=== PATIENT | male | born 1965 | race Caucasian/White ===

== ENCOUNTER 2017-12-28 17:37 | Emergency (ER) | payer MEDICAID ==
[~2017-12-28] VITALS: Ht 167.6 cm; Wt 65.9 kg
[2017-12-28 17:40] VITALS: BP 166/88
[2017-12-28] MEDS ORDERED: TETanus/Pertussis (Acell)/Diphther VAC/PF (Tdap-Adult) 0.5ml syringe IMVAC ONE (17:50)
[2017-12-28] MEDS ORDERED: ciprofloxacin lact 400MG/200ML 200 ML IV STA (18:00)
[2017-12-28] MEDS ORDERED: LIDOcaine 1% 30ml preserv. free vial IJ STA (18:44)
[2017-12-28] MEDS ORDERED: LIDOcaine 1% (10mg/ml)w/preservative injection 20ml MDV SQ ONE (18:50)
== END 2017-12-28 19:37 | disposition home or self-care (01) ==
LOC: ER 17:37
DX: S61.217A Laceration without foreign body of left little finger without damage to nail, initial encounter (principal); F12.90 Cannabis use, unspecified, uncomplicated; F15.90 Other stimulant use, unspecified, uncomplicated; Z88.0 Allergy status to penicillin; Z87.891 Personal history of nicotine dependence; Z96.22 Myringotomy tube(s) status; W20.8XXA Other cause of strike by thrown, projected or falling object, initial encounter; Y93.89 Activity, other specified; Y92.89 Other specified places as the place of occurrence of the external cause; Y99.8 Other external cause status
CPT/HCPCS: 73140; 90471; 90715; 96365; 99284; J0744; J2001

== ENCOUNTER 2018-03-30 11:46 | Emergency (ER) | payer MEDICAID ==
[~2018-03-30] VITALS: Ht 167.6 cm; Wt 63.6 kg
[2018-03-30 12:27] VITALS: BP 128/82
[2018-03-30] MEDS ORDERED: HYDROcodone/acetaminophen 10/325mg tab PO ONE (12:35)
[2018-03-30] MEDS ORDERED: HYDR-4383 PO (12:37)
[2018-03-30] MEDS ORDERED: ACYC-202 PO (12:37)
[2018-03-30] MEDS ORDERED: diazepam 5mg tablet PO ONE (12:40)
--- NOTE | 2018-03-30 13:28 | NUR ---
Called patient and irene answered. Irene is listed on patients contact information, but stated that I had the wrong number.
--- NOTE | 2018-03-30 13:40 | NUR ---
Patient seen and assessed by provider.
== END 2018-03-30 13:56 | disposition home or self-care (01) ==
LOC: ER 11:46
DX: A60.01 Herpesviral infection of penis (principal); F12.90 Cannabis use, unspecified, uncomplicated; F15.90 Other stimulant use, unspecified, uncomplicated
CPT/HCPCS: 36415; 86695; 86696; 99283

== ENCOUNTER 2018-04-14 16:07 | Emergency (ER) | payer MEDICAID ==
[~2018-04-14] VITALS: Ht 167.6 cm; Wt 69.4 kg
[~2018-04-14 16:07] MED LIST: ACYC-202 PO; HYDR-4383 PO
[2018-04-14 16:20] VITALS: BP 116/67
[2018-04-14 17:14] LABS: CLARITY,URINE SLIGHTLY CLOUDY (Clear); COLOR,URINE YELLOW (Yellow); GLUCOSE, URINE NEGATIVE (Neg); KETONES,URINE TRACE mg/dl (Neg); LEUKOCYTE ESTERASE ,URINE MODERATE (Neg); NITRITES, URINE NEGATIVE (Neg); OCCULT BLOOD,URINE SMALL (Neg); PH,URINE 5.5 (4.8-8.0); PROTEIN,URINE NEGATIVE (Neg); UROBILINOGEN,URINE 0.2 E.U/dL (0.2-1.0)
[2018-04-14] MEDS ORDERED: fluconazole 150mg tablet PO ONE (17:15)
[2018-04-14 17:18] LABS: UA COLLECTION TYPE VOIDED
[2018-04-14] MEDS ORDERED: CLOT15CR10 TP (17:19)
[2018-04-14 17:21] LABS: BACTERIA,URINE 1+ /HPF (Neg); CAL OXALATE CRYSTALS 2+ /HPF (NEGATIVE); MUCUS STRANDS FEW /LPF (Neg); RBC,URINE 0-2 /HPF (0-2); SQUAMOUS EPITHELIAL CELL,UR FEW /LPF (FEW)
[2018-04-14 17:22] LABS: CELLULAR CAST 0-4 /LPF (NEGATIVE)
[2018-04-14] MEDS ORDERED: IBUP-1984 PO (17:29)
[2018-04-14] MEDS ORDERED: ketorolac tromethamine 15mg/ml inj. IM ONE (17:30)
[2018-04-14] MEDS ORDERED: ibuprofen 200mg tablet PO ONE (18:00)
[2018-04-16 08:17] LABS: RPR Reactive (Non Reactive)
== END 2018-04-14 18:11 | disposition home or self-care (01) ==
LOC: ER 16:07
DX: N48.1 Balanitis (principal); F12.90 Cannabis use, unspecified, uncomplicated; F15.90 Other stimulant use, unspecified, uncomplicated; Z59.0 Homelessness; Z88.0 Allergy status to penicillin
CPT/HCPCS: 36415; 81001; 86592; 87077; 87088; 87186; 87491; 87591; 99283; J1885

== ENCOUNTER 2019-06-09 20:15 | Emergency (ER) | payer MEDICAID, OTHER ==
[~2019-06-09] VITALS: Ht 167.6 cm; Wt 66.0 kg
[~2019-06-09 20:15] MED LIST changes: -ACYC-202 PO; +CLOT15CR10 TP; +VALA100031 PO
[2019-06-09 20:25] VITALS: BP 133/82
[2019-06-09] MEDS ORDERED: azithromycin 250mg tablet PO ONE (21:05)
[2019-06-09] MEDS ORDERED: CefTRIAXone 250MG IM Kit w/LIDOcaine IM ONE (21:05)
[2019-06-09] MEDS ORDERED: penicillin G benzathine 1.2 million unit/2ml syringe IM ONE (21:05)
[2019-06-09] MEDS ORDERED: VALA500T41 PO (21:53)
[2019-06-11 08:09] LABS: RPR Reactive (Non Reactive)
== END 2019-06-09 22:18 | disposition home or self-care (01) ==
LOC: ER 20:16
DX: B00.9 Herpesviral infection, unspecified (principal); N48.5 Ulcer of penis; F12.90 Cannabis use, unspecified, uncomplicated; F15.90 Other stimulant use, unspecified, uncomplicated; Z86.19 Personal history of other infectious and parasitic diseases; Z98.890 Other specified postprocedural states; Z59.0 Homelessness; Z88.0 Allergy status to penicillin; Z79.899 Other long term (current) drug therapy
CPT/HCPCS: 36415; 86592; 87491; 87591; 96372; 99284; J0561; J0696

== ENCOUNTER 2024-05-12 11:15 | Inpatient (IN) | payer MEDICAID, OTHER ==
[~2024-05-12] VITALS: Ht 167.6 cm; Wt 64.0 kg
[~2024-05-12 11:15] MED LIST changes: +VALA500T41 PO
[2024-05-12 11:55] LABS: BASOPHILS % (AUTO) 0.2 % (0-1); EOSINOPHILS % (AUTO) 0 % (0-6); HEMATOCRIT 35.7 % (42.0-52.0); LYMPHOCYTES # (AUTO) 0.6 X10'3 (1.1-4.8); LYMPHOCYTES % (AUTO) 3.6 % (21-51); MEAN CORPUSCULAR HEMOGLOBIN 30.6 PG (27.0-31.0); MEAN CORPUSCULAR HGB CONC 33.6 g/dL (33.0-36.5); MEAN CORPUSCULAR VOLUME 91.2 FL (78-98); MEAN PLATELET VOLUME 6.8 FL (7.4-10.4); MONOCYTES # (AUTO) 0.9 X10'3 (0-0.9); MONOCYTES % (AUTO) 5.5 % (2-12); NEUTROPHILS # (AUTO) 14.8 X10'3 (1.8-7.7); NEUTROPHILS % (AUTO) 90.7 % (42-75); PLATELET COUNT 404 X10'3 (140-440); RED BLOOD COUNT 3.91 X10'6 (4.70-6.10); RED CELL DISTRIBUTION WIDTH 14.2 % (11.5-14.5); WHITE BLOOD COUNT 16.3 X10'3 (4.5-11.0)
[2024-05-12 12:22] LABS: ALANINE AMINOTRANSFERASE 63 U/L (12-78); ALBUMIN 2.4 G/DL (3.4-5.0); ALBUMIN/GLOBULIN RATIO 0.4 (1.1-1.5); ALKALINE PHOSPHATASE 88 IU/L (46-116); ANION GAP 7 (8-16); ASPARTATE AMINO TRANSFERASE 50 U/L (10-37); BILIRUBIN,TOTAL 0.8 MG/DL (0.1-1.0); BLOOD UREA NITROGEN 19 MG/DL (7-18); BUN/CREATININE RATIO 16.2 (10.0-20.0); CALCIUM 8.6 MG/DL (8.5-10.1); CHLORIDE 91 MMOL/L (99-107); CREATININE 1.17 MG/DL (0.60-1.10); GLUCOSE 110 MG/DL (70-104); SODIUM 127 MMOL/L (135-145); TOTAL CARBON DIOXIDE 29.4 MMOL/L (24-32); TOTAL PROTEIN 7.9 G/DL (6.4-8.2); eCRCL 64 ML/MIN; eGFR 64 ML/MIN
[2024-05-12 12:32] LABS: BILIRUBIN,URINE SMALL (Neg); CLARITY,URINE CLEAR (Clear); GLUCOSE, URINE NEGATIVE (Neg); KETONES,URINE NEGATIVE (Neg); LEUKOCYTE ESTERASE ,URINE NEGATIVE (Neg); NITRITES, URINE NEGATIVE (Neg); OCCULT BLOOD,URINE MODERATE (Neg); PROTEIN,URINE 100 mg/dl (Neg)
[2024-05-12 12:38] LABS: URINE AMPHETAMINE SCREEN POSITIVE (Neg); URINE BARBITUATE SCREEN NEGATIVE (Neg); URINE BENZODIAZEPINES SCREEN NEGATIVE (Neg); URINE CANNABINOID SCREEN POSITIVE (Neg); URINE COCAINE SCREEN NEGATIVE (Neg); URINE METHADONE SCREEN NEGATIVE (Neg); URINE OPIATE SCREEN NEGATIVE (Neg); URINE PHENCYCLIDINE SCREEN NEGATIVE (Neg)
[2024-05-12 12:42] LABS: UA COLLECTION TYPE CLN CATCH MIDSTREAM
[2024-05-12 12:45] LABS: BACTERIA,URINE FEW /HPF (Neg); COLOR,URINE DARK YELLOW (Yellow); RBC,URINE 0-2 /HPF (0-2); SQUAMOUS EPITHELIAL CELL,UR FEW /LPF (FEW); WBC,URINE 0-4 /HPF (0-4)
[2024-05-12 12:46] LABS: COARSE GRANULAR CAST 0-3 /LPF (NEGATIVE)
[2024-05-12 12:52] LABS: PRO BRAIN NATRIURETIC PEPTIDE 286 PG/ML (0-125); THYROID STIMULATING HORMONE 1.66 ulU/ml (0.34-4.50)
[2024-05-12] MEDS: normal saline 1000ml 1,000 ML IV ONE (13:03)
[2024-05-12] MEDS: levoFLOXACIN-Levaquin 750MG/D5 150 ML IV STA (15:02)
[2024-05-12] MEDS ORDERED: acetaminophen 325mg tablet PO PRN (15:20)
[2024-05-12] MEDS ORDERED: mag hydrox/Alum hydrox/simeth 30ml oral suspension PO PRN (15:20)
[2024-05-12] MEDS ORDERED: HYDROcodone/acetaminophen 10/325mg tab PO PRN (15:20)
[2024-05-12] MEDS ORDERED: magnesium Cl slow-release 64mg tablet PO PRN (15:20)
[2024-05-12] MEDS ORDERED: morphine 2 MG/ML inj. syringe IV PRN ×2 (15:20)
[2024-05-12] MEDS ORDERED: ondansetron/PF 4mg/2ml inj IV PRN (15:20)
[2024-05-12] MEDS ORDERED: magnesium hydroxide 30ml (MOM) UD suspension PO PRN (15:20)
[2024-05-12] MEDS ORDERED: potassium Cl 40MEQ/1/2NS 520ml 520 ML IV PRN (15:20)
[2024-05-12] MEDS ORDERED: magnesium sulf-water 4G/100mL 100 ML IV PRN (15:20)
[2024-05-12] MEDS ORDERED: potassium Cl 20 mEq SR tablet PO PRN ×2 (15:20)
[2024-05-12] MEDS ORDERED: magnesium sulf-water 2g/50mL 50 ML IV PRN (15:20)
[2024-05-12] MEDS ORDERED: HYDROcodone/acetaminophen 5mg/325mg tablet PO PRN (15:20)
[2024-05-12] MEDS: normal saline 1000ml 1,000 ML IV SCH (15:37)
[2024-05-12 16:11] LABS: PHOSPHORUS 2.6 MG/DL (2.3-4.5)
[2024-05-12] MEDS ORDERED: UNABLE TO OBTAIN (16:47)
[2024-05-12] MEDS: ringers solution, lacted 1,000 ML IV ONE (17:45)
[2024-05-12] MEDS: K and/or MAG REPLACEMENT MC SCH (19:58)
[2024-05-12 22:50] VITALS: BP 137/71; PULSE 101; RESP 36; TEMP 97.7; O2SAT 90
[2024-05-13] VITALS (8 sets, daily range): BP systolic 115–134; BP diastolic 66–86; PULSE 84–106; RESP 16–24; TEMP 97.1–98.7; O2SAT 95–98
[2024-05-13 07:23] LABS: BASOPHILS % (AUTO) 0 % (0-1); EOSINOPHILS % (AUTO) 0.1 % (0-6); HEMATOCRIT 32.5 % (42.0-52.0); HEMOGLOBIN 10.7 g/dl (14.0-17.9); LYMPHOCYTES # (AUTO) 0.7 X10'3 (1.1-4.8); LYMPHOCYTES % (AUTO) 5.5 % (21-51); MEAN CORPUSCULAR HEMOGLOBIN 30.3 PG (27.0-31.0); MEAN CORPUSCULAR HGB CONC 32.9 g/dL (33.0-36.5); MEAN CORPUSCULAR VOLUME 92.1 FL (78-98); MEAN PLATELET VOLUME 7.1 FL (7.4-10.4); MONOCYTES # (AUTO) 0.5 X10'3 (0-0.9); MONOCYTES % (AUTO) 4.5 % (2-12); NEUTROPHILS # (AUTO) 10.8 X10'3 (1.8-7.7); NEUTROPHILS % (AUTO) 89.9 % (42-75); PLATELET COUNT 314 X10'3 (140-440); RED BLOOD COUNT 3.53 X10'6 (4.70-6.10); RED CELL DISTRIBUTION WIDTH 14.3 % (11.5-14.5)
[2024-05-13 07:45] LABS: ALANINE AMINOTRANSFERASE 44 U/L (12-78); ALBUMIN 1.5 G/DL (3.4-5.0); ALBUMIN/GLOBULIN RATIO 0.3 (1.1-1.5); ALKALINE PHOSPHATASE 70 IU/L (46-116); ANION GAP 5 (8-16); ASPARTATE AMINO TRANSFERASE 48 U/L (10-37); BILIRUBIN,TOTAL 0.4 MG/DL (0.1-1.0); BLOOD UREA NITROGEN 14 MG/DL (7-18); BUN/CREATININE RATIO 14.7 (10.0-20.0); CALCIUM 7.8 MG/DL (8.5-10.1); CHLORIDE 99 MMOL/L (99-107); CREATININE 0.95 MG/DL (0.60-1.10); GLUCOSE 101 MG/DL (70-104); POTASSIUM 3.5 MMOL/L (3.5-5.1); SODIUM 132 MMOL/L (135-145); TOTAL CARBON DIOXIDE 27.6 MMOL/L (24-32); eCRCL 78 ML/MIN; eGFR 82 ML/MIN
[2024-05-13] MEDS: levoFLOXACIN-Levaquin 750MG/D5 150 ML IV SCH (09:25)
[2024-05-13] MEDS: pantoprazole 40 MG vial IV SCH (09:25)
[2024-05-13] MEDS: enoxaparin 40mg/0.4ml syringe SUBCUT SCH (09:26)
[2024-05-14 02:00] VITALS: BP 126/77; PULSE 70; RESP 14; TEMP 97.8; O2SAT 94
[2024-05-14 06:00] VITALS: BP 131/77; PULSE 82; RESP 13; TEMP 97.7; O2SAT 97
[2024-05-14 07:00] VITALS: RESP 13; O2SAT 97
[2024-05-14 07:00] LABS: BASOPHILS % (AUTO) 0 % (0-1); EOSINOPHILS % (AUTO) 0.2 % (0-6); HEMATOCRIT 33.1 % (42.0-52.0); LYMPHOCYTES # (AUTO) 0.8 X10'3 (1.1-4.8); LYMPHOCYTES % (AUTO) 6.7 % (21-51); MEAN CORPUSCULAR HEMOGLOBIN 30.5 PG (27.0-31.0); MEAN CORPUSCULAR HGB CONC 33.3 g/dL (33.0-36.5); MEAN CORPUSCULAR VOLUME 91.4 FL (78-98); MEAN PLATELET VOLUME 7.1 FL (7.4-10.4); MONOCYTES # (AUTO) 0.6 X10'3 (0-0.9); MONOCYTES % (AUTO) 5.2 % (2-12); NEUTROPHILS # (AUTO) 10.6 X10'3 (1.8-7.7); NEUTROPHILS % (AUTO) 87.9 % (42-75); PLATELET COUNT 365 X10'3 (140-440); RED BLOOD COUNT 3.62 X10'6 (4.70-6.10); RED CELL DISTRIBUTION WIDTH 14.3 % (11.5-14.5); WHITE BLOOD COUNT 12.1 X10'3 (4.5-11.0)
[2024-05-14 07:27] LABS: ALANINE AMINOTRANSFERASE 44 U/L (12-78); ALBUMIN 1.5 G/DL (3.4-5.0); ALBUMIN/GLOBULIN RATIO 0.3 (1.1-1.5); ALKALINE PHOSPHATASE 78 IU/L (46-116); ANION GAP 7 (8-16); ASPARTATE AMINO TRANSFERASE 44 U/L (10-37); BILIRUBIN,TOTAL 0.3 MG/DL (0.1-1.0); BLOOD UREA NITROGEN 13 MG/DL (7-18); BUN/CREATININE RATIO 15.7 (10.0-20.0); CALCIUM 8.1 MG/DL (8.5-10.1); CHLORIDE 100 MMOL/L (99-107); CREATININE 0.83 MG/DL (0.60-1.10); GLUCOSE 107 MG/DL (70-104); POTASSIUM 3.5 MMOL/L (3.5-5.1); SODIUM 134 MMOL/L (135-145); TOTAL CARBON DIOXIDE 27.4 MMOL/L (24-32); TOTAL PROTEIN 6.2 G/DL (6.4-8.2); eCRCL 90 ML/MIN; eGFR > 90 ML/MIN
[2024-05-14] MEDS ORDERED: ACET-1008 PO (08:00)
[2024-05-14] MEDS ORDERED: LEVO750T68 PO (08:00)
== END 2024-05-14 08:54 | disposition home or self-care (01) | DRG 720 ==
LOC: ER 11:16 → ED HOLD 15:21 → PCU 3S 22:43
PROVIDERS: ADMIT Internal Medicine; ATTEND Internal Medicine
DX: A40.8 Other streptococcal sepsis (principal); N17.0 Acute kidney failure with tubular necrosis; J18.9 Pneumonia, unspecified organism; E87.1 Hypo-osmolality and hyponatremia; Z20.822 Contact with and (suspected) exposure to COVID-19; N40.0 Benign prostatic hyperplasia without lower urinary tract symptoms; D64.9 Anemia, unspecified; R31.9 Hematuria, unspecified; Z79.899 Other long term (current) drug therapy; Z88.0 Allergy status to penicillin; Z88.1 Allergy status to other antibiotic agents
CPT/HCPCS: 36415; 71045; 71250; 74176; 80053; 80305; 81001; 82948; 83605; 83735; 83880; 84100; 84145; 84443; 84484; 85025; 87040; 87070; 87077; 87081; 87186; 87502; 87503; 87811; 93005; 99291; A4615; G0378; J1650; J1956; J2470; J7030; J7120